=== PATIENT | male | born 1960 | race Caucasian/White ===

== ENCOUNTER 2018-11-14 19:57 | Emergency (ER) | payer OTHER ==
[2018-11-14] MEDS ORDERED: Ketorolac 10 MG Tab ONE ×2 (21:00→21:07)
[2018-11-14] MEDS ORDERED: Acetaminophen/HYDROcodone 325-5 MG Tab ONE (21:00)
[2018-11-14] MEDS ORDERED: Ketorolac 60 MG/2 ML SDV IM ONE (21:13)
--- NOTE | 2018-11-14 21:20 | EDM.PDOC ---
ED HPI GENERAL MEDICAL PROBLEM - General Chief Complaint: Back Pain or Injury Stated Complaint: RIGHT LOWER BACK PAIN Time Seen by Provider: 11/14/18 20:45 Source of Information: Reports: Patient History Limitations: Reports: No Limitations - History of Present Illness INITIAL COMMENTS - FREE TEXT/NARRATIVE: Pt is a 58/male presenting to emergency room with c/o low back pain going on for past 3 months. Pt claims that 3 months ago he has partial knee replacement done in [place]. 2 wks after his surgery he did get back to work. Since his surgery he has had on going pain in his right knee, and has been compensating with his right hip for ambulation. He has developed a progressive pain over the right lower back. He has been on celebrex for pain, which he has not taken for past few days. Rates his back pain at 8-9/10. Hurts with any twisting or turning activities. No weakness in his right lower extremity. No recent trauma. Pt does heavy duty job. Onset: Gradual Duration: Getting Worse Location: Reports: Back Quality: Reports: Ache Severity: Severe Improves with: Reports: None Worsens with: Reports: None Associated Symptoms: Denies: Confusion, Chest Pain, Cough, Diaphoresis, Fever/ Chills, Headaches, Nausea/Vomiting, Rash, Seizure, Shortness of Breath, Syncope , Weakness Treatments ASSISTANT EDUCATION DIRECTOR: Reports: Other (see below) Other Treatments ASSISTANT EDUCATION DIRECTOR: heat therapy Right Lower Back Pain Score (Numeric/FACES): 8 - Related Data Allergies Allergy/AdvReac Type Severity Reaction Status Date / Time No Known Allergies Allergy Verified 11/14/18 21:16 Home Meds: Home Meds Celecoxib [CeleBREX] 200 mg PO DAILY 11/14/18 [History] Past Medical History Respiratory History: Reports: Pneumonia, Recurrent, Pneumothorax, Other (See Below) Other Respiratory History: rib fx Musculoskeletal History: Reports: Fracture - Past Surgical History Musculoskeletal Surgical History: Reports: Knee Replacement, ORIF, Other (See Below) Other Musculoskeletal Surgeries/Procedures:: right wrist ORIF Social & Family History - Tobacco Use Smoking Status *Q: Never Smoker - Recreational Drug Use Recreational Drug Use: No ED ROS GENERAL - Review of Systems Review Of Systems: See Below Constitutional: Denies: Fever, Chills HEENT: Denies: Ear Pain, Rhinitis, Throat Pain Respiratory: Denies: Shortness of Breath, Pleuritic Chest Pain, Cough, Sputum Cardiovascular: Denies: Chest Pain, Lightheadedness GI/Abdominal: Denies: Abdominal Pain, Nausea, Vomiting : Denies: Dysuria, Frequency Musculoskeletal: Reports: Back Pain, Joint Pain, Joint Swelling Skin: Denies: Bruising, Pruritis, Rash ED EXAM, GENERAL - Physical Exam Exam: See Below Exam Limited By: No Limitations General Appearance: Alert, WD/WN, Mild Distress Eye Exam: Bilateral Eye: EOMI, PERRL Ears: Normal External Exam, Normal Canal, Hearing Grossly Normal, Normal TMs Ear Exam: Bilateral Ear: Auricle Normal, Canal Normal, TM normal Nose: Normal Inspection, Normal Mucosa, No Blood Throat/Mouth: Normal Inspection, Normal Lips, Normal Teeth, Normal Gums, Normal Oropharynx, Normal Voice, No Airway Compromise Head: Atraumatic, Normocephalic Neck: Normal Inspection, Supple, Non-Tender, Full Range of Motion Respiratory/Chest: No Respiratory Distress, Lungs Clear, Normal Breath Sounds, No Accessory Muscle Use, Chest Non-Tender Cardiovascular: Normal Peripheral Pulses, Regular Rate, Rhythm, No Edema, No Gallop, No JVD, No Murmur, No Rub Back Exam: Normal Inspection, Full Range of Motion, Muscle Spasm, Other (Lower back: there is no defromity or swelling. No LS vertebral tenderness. Pt has significant right SI joint tenderness to percussion. Slightly decreased SLR on the right side.). No: Vertebral Tenderness Extremities: Normal Range of Motion, No Pedal Edema, Other (Right knee: there is well healed scar over the knee. There is minimal effusion around the joint. Tender around the joint to palpation. Good ROM. ) Course - Vital Signs Text/Narrative:: Pt has a progressively worsening Right SI joint pain since his right knee surgery. This appears like mechanical pain asso with compensatory mechanism patient has been using to cope with his right knee pain. Rates his pain at 8-9/ 10. Pt did receive toradol 60mg IM in the emergency room . Also I have started him on toradol 10mg every 8 hrs , and given vicodin 5/325 to be used very cautiously , for pain not controlled by toradol. Toradol needs to be taken with food. Intermittent heat to the back 3-4 times daily. Considering the duration of pain patient seems to be having now for. I have recommended him to followup with his orthopedic surgeon for further management of his pain.Pt understands and agrees with the plan. Last Recorded V/S: Last Vital Signs Temp 99.2 F 11/14/18 20:10 Pulse 89 11/14/18 20:10 Resp 18 11/14/18 20:10 BP 156/112 H 11/14/18 20:10 Pulse Ox 100 11/14/18 20:10 - Orders/Labs/Meds Meds: Medications Discontinued Medications Generic Name Dose Route Start Last Admin Trade Name Alexandra PRN Reason Stop Dose Admin Ketorolac Tromethamine Confirm 11/14/18 21:07 Toradol Administered 11/14/18 21:08 Dose 100 mg .ROUTE .STK-MED ONE Ketorolac Tromethamine 60 mg 11/14/18 21:13 Toradol IM 11/14/18 21:14 ONETIME ONE Departure - Departure Time of Disposition: 21:25 Disposition: Home, Self-Care 01 Condition: Fair Clinical Impression: Chronic sacroiliac strain - Discharge Information *PRESCRIPTION DRUG MONITORING PROGRAM REVIEWED*: Not Applicable *COPY OF PRESCRIPTION DRUG MONITORING REPORT IN PATIENT [place]: Not Applicable Instructions: Acetaminophen; Hydrocodone tablets or capsules, Sacroiliac Joint Dysfunction, Ketorolac tablets Referrals: PCP,None [Primary Care Provider] - Forms: ED Department Discharge Additional Instructions: Take Toradol 1 tablet orally three times a day. Take with some food. May take Vicodin 1 tyab every 8 hours as needed for breakthrough pain. Use intermittent heat for 15 minutes three times a day. Use caution with you body mechanics. Avoid twisting and turning. Keep your follow up appointment with your ortho provider. - Problem List & Annotations (1) Chronic sacroiliac strain SNOMED Code(s): 119127589, 029979824 Code(s): S39.012A - STRAIN OF MUSCLE, FASCIA AND TENDON OF LOWER BACK, INIT Status: Acute Current Visit: Yes - Problem List Review Problem List Initiated/Reviewed/Updated: Yes - Assessment/Plan Assessment:: Acute on chronic right SI joint strain Plan: Pt has a progressively worsening Right SI joint pain since his right knee surgery. This appears like mechanical pain asso with compensatory mechanism patient has been using to cope with his right knee pain. Rates his pain at 8-9/ 10. Pt did receive toradol 60mg IM in the emergency room . Also I have started him on toradol 10mg every 8 hrs , and given vicodin 5/325 to be used very cautiously , for pain not controlled by toradol. Toradol needs to be taken with food. Intermittent heat to the back 3-4 times daily. Considering the duration of pain patient seems to be having now for. I have recommended him to followup with his orthopedic surgeon for further management of his pain.Pt understands and agrees with the plan.
[2018-11-14] MEDS ORDERED: Ketorolac 60 MG/2 ML SDV ONE (21:24)
== END 2018-11-14 21:30 | disposition home or self-care (01) ==
LOC: LB.ED 19:57
DX: S39.012A Strain of muscle, fascia and tendon of lower back, initial encounter (principal); X58.XXXA Exposure to other specified factors, initial encounter; Y99.0 Civilian activity done for income or pay
CPT/HCPCS: 96372; 99283; A9270; J1885